=== PATIENT | female | born 1960 | race Caucasian/White ===

== ENCOUNTER 2022-08-05 06:27 | Day surgery (SDC) | payer OTHER, BC ==
[2022-08-04 09:43] VITALS: BMI 25.0
[2022-08-05] MEDS ORDERED: BUPIVACAINE HCL 100 ML ONE (07:03)
[2022-08-05] MEDS ORDERED: LIDOCAINE HCL 2% (20ML MULTI-DOSE VIAL) ONE (07:03)
[2022-08-05] MEDS ORDERED: BUPIVACAINE HCL/PF 2.5 MG/ML - 30 ML VIAL IJ ONE (07:03)
[2022-08-05] MEDS ORDERED: PROPOFOL 40 ML ONE (07:32)
[2022-08-05] MEDS ORDERED: MIDAZOLAM HCL 2 MG/2 ML SINGLE DOSE VIAL ONE (07:32)
[2022-08-05] MEDS ORDERED: DEXAMETHASONE SOD PHOSPHATE 4 MG/1 ML VIAL ONE (07:32)
[2022-08-05] MEDS ORDERED: SUCCINYLCHOLINE CHLORIDE 200 MG/10 ML SYRINGE ONE (07:32)
[2022-08-05] MEDS ORDERED: ONDANSETRON 4 MG/2 ML VIAL ONE (07:32)
[2022-08-05 08:47] VITALS: TEMP 97.8
[2022-08-05 09:13] VITALS: BP 128/71; PULSE 54; RESP 18
[2022-08-05] MEDS ORDERED: ONDANSETRON 4 MG/2 ML VIAL IVPUSH PRN (09:50)
[2022-08-05] MEDS ORDERED: oxyCODONE HCL 5 MG TABLET PO PRN (09:50)
[2022-08-05] MEDS ORDERED: ACETAMINOPHEN 500 MG TABLET (FP) PO PRN (09:50)
[2022-08-05] MEDS ORDERED: LACTATED RINGERS SOLUTION 1,000 ML IV SCH (10:00)
== END 2022-08-05 09:16 | disposition home or self-care (01) ==
LOC: FASU 06:27
PROVIDERS: ATTEND Orthopaedic Surgery Hand Surgery
PROC: 01N50ZZ Release Median Nerve, Open Approach (ICD-10-PCS; principal; 2022-08-05 08:18)
DX: G56.02 Carpal tunnel syndrome, left upper limb (principal)